=== PATIENT | male | born 1980 | race African-American/Black ===

== ENCOUNTER 2020-11-05 09:25 | Emergency (ER) | payer SELFPAY ==
[~2020-11-05] VITALS: Ht 182.9 cm; Wt 98.0 kg
[2020-11-05] MEDS ORDERED: ACETAMINOPHEN WITH CODEINE 300/30MG TABLET PO ONE (11:30)
[2020-11-05 11:45] VITALS: BP 129/89
== END 2020-11-05 11:47 | disposition home or self-care (01) ==
LOC: ER 09:25
DX: R51.9 Headache, unspecified (principal); M54.2 Cervicalgia; V49.49XA Driver injured in collision with other motor vehicles in traffic accident, initial encounter; Y93.89 Activity, other specified; Y92.89 Other specified places as the place of occurrence of the external cause; Y99.8 Other external cause status; Z90.49 Acquired absence of other specified parts of digestive tract
CPT/HCPCS: 99284